=== PATIENT | female | born 1965 | race Caucasian/White ===

== ENCOUNTER 2017-09-26 06:57 | Day surgery (SDC) | payer BC ==
[~2017-09-26] VITALS: Ht 157.5 cm; Wt 85.0 kg
[2017-09-26 07:20] VITALS: BP 147/72
[2017-09-26] MEDS ORDERED: NORCO 5/3251 TABLET PO (11:20)
[2017-09-26 12:08] VITALS: BP 133/79
[2017-09-26 13:55] VITALS: BP 121/75
== END 2017-09-26 13:50 | disposition home or self-care (01) ==
LOC: SDC 06:57
DX: K80.10 Calculus of gallbladder with chronic cholecystitis without obstruction (principal); F41.1 Generalized anxiety disorder; E66.9 Obesity, unspecified; Z68.34 Body mass index [BMI] 34.0-34.9, adult
CPT/HCPCS: 74300; 87641; 88304; C1769; J1100; J1170; J1885; J2250; J2405; J2710; J3010; S0020; S0074